=== PATIENT | female | born 1985 ===

== ENCOUNTER 2018-03-07 14:19 | Emergency (ER) | payer SELFPAY ==
[2018-03-07 14:55] VITALS: BP 133/68
--- NOTE | 2018-03-07 15:10 | UC ---
Throat Pain/Nasal Heriberto HPI - HPI Summary HPI Summary: Otherwise healthy 32 yo female with 3d h/o ST and HOFF. BF recently treated for strep throat. No fevers or congestion. No cough or SOB. No n/v/d. No rash - History of Current Complaint Chief Complaint: UCGeneralIllness Stated Complaint: HEADACHE,SORE THROAT Hx Last Menstrual Period: 02/28/2018 Pain Intensity: 6 - Allergies/Home Medications Allergies/Adverse Reactions: Allergies Allergy/AdvReac Type Severity Reaction Status Date / Time No Known Allergies Allergy Verified 03/07/18 14:55 PMH/Surg Hx/FS Hx/Imm Hx Previously Healthy: Yes - Surgical History Surgical History: None - Family History Known Family History: Positive: None - Social History Alcohol Use: Weekly Substance Use Type: None Smoking Status (MU): Never Smoked Tobacco Review of Systems Constitutional: Negative Skin: Negative Eyes: Negative ENT: Sore Throat Respiratory: Negative Cardiovascular: Negative Gastrointestinal: Negative Genitourinary: Negative Motor: Negative Neurovascular: Negative Musculoskeletal: Negative Neurological: Negative Psychological: Negative Is Patient Immunocompromised?: No All Other Systems Reviewed And Are Negative: Yes Physical Exam Triage Information Reviewed: Yes Appearance: Well-Appearing Vital Signs: Initial Vital Signs Temp 97.2 F 03/07/18 14:49 Pulse 57 03/07/18 14:49 Resp 16 03/07/18 14:49 BP 133/68 03/07/18 14:49 Pulse Ox 100 03/07/18 14:49 Vital Signs Reviewed: Yes ENT: Positive: Pharyngeal erythema, Tonsillar swelling Neck: Positive: Supple, Nontender, Enlarged Nodes @ - anterior cervical Respiratory: Positive: Chest non-tender, Lungs clear, Normal breath sounds Cardiovascular: Positive: RRR, No Murmur Abdominal Exam: Normal Abdomen Description: Positive: Nontender Musculoskeletal Exam: Normal Neurological Exam: Normal Psychological Exam: Normal Skin Exam: Normal Throat Pain/Nasal Course/Dx - Course Course Of Treatment: Otherwise healthy 32 yo female with HOFF and fever and close contact with strep pharyngitis. Exam c/w strep throat. Tx with amoxicillin. - Differential Dx/Diagnosis Differential Diagnosis/HQI/PQRI: Influenza, Laryngitis, Pharyngitis, Tonsillitis Provider Diagnoses: 1. Strep pharyngitis Discharge - Sign-Out/Discharge Documenting (check all that apply): Discharge - Discharge Plan Condition: Stable Disposition: HOME Prescriptions: Amoxicillin 500 mg PO BID #14 cap Patient Education Materials: Strep Throat (DC) Referrals: No Primary Care Phys,NOPCP [Primary Care Provider] - Additional Instructions: Instructions: 1. Take antibiotics as directed - Billing Disposition and Condition Condition: STABLE Disposition: HOME
== END 2018-03-07 15:09 | disposition home or self-care (01) ==
LOC: UCEAST 14:19
DX: J02.0 Streptococcal pharyngitis (principal)
CPT/HCPCS: 99202; G0463